=== PATIENT | male | born 1970 | race Caucasian/White ===

== ENCOUNTER → 2017-12-09 | Outpatient (REF) | payer OTHER ==
[2017-12-09 12:05] LABS: INFLUENZA A AMPLIFICATION POSITIVE (NEGATIVE); INFLUENZA B AMPLIFICATION NEGATIVE (NEGATIVE); RSV AMPLIFICATION NEGATIVE (NEGATIVE)
== END ==
LOC: M LAB REF 11:20
DX: J02.9 Acute pharyngitis, unspecified (principal)

== ENCOUNTER → 2018-05-06 | Outpatient (REF) | payer OTHER | LOC: M LAB REF 16:16 | DX: C44.519 Basal cell carcinoma of skin of other part of trunk (principal) ==

== ENCOUNTER → 2019-01-11 | Outpatient (REF) | payer OTHER ==
[2019-01-11 18:50] LABS: INFLUENZA A AMPLIFICATION NEGATIVE (NEGATIVE); INFLUENZA B AMPLIFICATION NEGATIVE (NEGATIVE)
== END ==
LOC: M LAB REF 16:57
PROVIDERS: ATTEND Nurse Practitioner Adult Health
DX: J06.9 Acute upper respiratory infection, unspecified (principal)

== ENCOUNTER 2019-11-23 06:55 | Day surgery (SDC) | payer OTHER ==
[~2019-11-23] VITALS: Ht 175.3 cm; Wt 81.2 kg
[~2019-11-23 06:55] MED LIST: BUSP5TA PO; METO1TAB7 PO; NS 1,000 ML IV ONE; RANI150T14 PO; SIMV20TA22 PO
[2019-11-23] MEDS ORDERED: propofoL 200 MG/20 ML VIAL As Ordered ONE ×2 (07:05→07:44)
[2019-11-23] MEDS ORDERED: LIDOCAINE 2% INJ 100 MG/5 ML SDV (FOR ANES.) As Ordered ONE (07:05)
[2019-11-23] MEDS ORDERED: ePHEDrine SULFATE 25 MG/5 ML(5MG/ML) SYRINGE As Ordered ONE (07:41)
--- NOTE | 2019-11-23 07:54 | ROOR ---
Patient Name: Wei Poe Procedure Date: 11/23/2019 7:32 AM Date of : 1970 Age: 49 Room: [facility] Gender: Male Note Status: Finalized Procedure: Colonoscopy Indications: Screening in patient at increased risk: Family history of 1st-degree relative with colorectal cancer before age 60 years Providers: DO Carolina Warner MD: Jer Durham MD Requesting Provider: Medicines: Propofol per Anesthesia Complications: No immediate complications. Procedure: Pre-Anesthesia Assessment: - Prior to the procedure, a History and Physical was performed, and patient medications and allergies were reviewed. The patient is competent. The risks and benefits of the procedure and the sedation options and risks were discussed with the patient. All questions were answered and informed consent was obtained. Patient identification and proposed procedure were verified by the physician, the nurse, the anesthesiologist and the precision lens technician in the endoscopy suite. Mental Status Examination: alert and oriented. Airway Examination: normal oropharyngeal airway and neck mobility. Respiratory Examination: clear to auscultation. CV Examination: normal. Prophylactic Antibiotics: The patient does not require prophylactic antibiotics. Prior Anticoagulants: The patient has taken no previous anticoagulant or antiplatelet agents. ASA Grade Assessment: II - A patient with mild systemic disease. After reviewing the risks and benefits, the patient was deemed in satisfactory condition to undergo the procedure. The anesthesia plan was to use monitored anesthesia care (MAC). Immediately prior to administration of medications, the patient was re-assessed for adequacy to receive sedatives. The heart rate, respiratory rate, oxygen saturations, blood pressure, adequacy of pulmonary ventilation, and response to care were monitored throughout the procedure. The physical status of the patient was re-assessed after the procedure. The Colonoscope was introduced through the anus and advanced to the cecum, identified by appendiceal orifice and ileocecal valve. The colonoscopy was performed without difficulty. The patient tolerated the procedure well. Findings: Non-bleeding internal hemorrhoids were found during retroflexion. The hemorrhoids were mild and Grade II (internal hemorrhoids that prolapse but reduce spontaneously). The exam was otherwise without abnormality on direct and retroflexion views. Impression: - Non-bleeding internal hemorrhoids. - The examination was otherwise normal on direct and retroflexion views. - No specimens collected. Recommendation: - Patient has a contact number available for emergencies. The signs and symptoms of potential delayed complications were discussed with the patient. Return to normal activities tomorrow. Written discharge instructions were provided to the patient. - Repeat colonoscopy in 5-10 years for screening purposes. - Return to my office PRN. Martin Donovan DO 11/23/2019 7:54:14 AM Electronically signed by Martin Donovan DO Number of Addenda: 0 Note Initiated On: 11/23/2019 7:32 AM Estimated Blood Loss: Estimated blood loss: none.
== END 2019-11-23 08:19 | disposition home or self-care (01) ==
LOC: M OPP 06:55
PROVIDERS: ATTEND Surgery
DX: Z12.11 Encounter for screening for malignant neoplasm of colon (principal); Z80.0 Family history of malignant neoplasm of digestive organs; K64.1 Second degree hemorrhoids; Z79.899 Other long term (current) drug therapy

== ENCOUNTER → 2022-04-15 | Outpatient (REF) | payer OTHER ==
[~2022-04-15] MED LIST changes: -NS 1,000 ML IV ONE
== END ==
LOC: M LAB REF 12:14
PROVIDERS: ATTEND Family Medicine
DX: M10.9 Gout, unspecified (principal)

== ENCOUNTER → 2022-10-15 | Outpatient (REF) | payer OTHER | LOC: M LAB REF 12:31 | PROVIDERS: ATTEND Family Medicine | DX: M10.9 Gout, unspecified (principal) ==

== ENCOUNTER → 2023-04-28 | Outpatient (REF) | payer OTHER | LOC: M LAB REF 16:38 | PROVIDERS: ATTEND Family Medicine | DX: M10.9 Gout, unspecified (principal) ==

== ENCOUNTER → 2024-04-11 | Outpatient (REF) | payer OTHER | LOC: M LAB REF 13:08 | PROVIDERS: ATTEND Family Medicine | DX: M10.9 Gout, unspecified (principal) ==

== ENCOUNTER 2025-03-22 06:46 | Day surgery (SDC) | payer OTHER ==
[~2025-03-22] VITALS: Ht 175.3 cm; Wt 84.9 kg
[2025-03-22] MEDS ORDERED: propofoL 200 MG/20 ML VIAL As Ordered ONE (07:15)
[2025-03-22 08:05] VITALS: BP 150/87; O2SAT 100
== END 2025-03-22 08:26 | disposition home or self-care (01) ==
LOC: M OPP 06:46
PROVIDERS: ATTEND Surgery
DX: Z12.11 Encounter for screening for malignant neoplasm of colon (principal); K63.5 Polyp of colon; K64.1 Second degree hemorrhoids; K21.9 Gastro-esophageal reflux disease without esophagitis; Z80.0 Family history of malignant neoplasm of digestive organs; I10 Essential (primary) hypertension; Z79.899 Other long term (current) drug therapy; M10.9 Gout, unspecified; Z85.828 Personal history of other malignant neoplasm of skin